=== PATIENT | female | born 2000 | race Caucasian/White ===

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

== ENCOUNTER 2019-11-02 14:44 | Emergency (ER) | payer MEDICAID ==
[2019-11-02 15:03] VITALS: BP 134/70; PULSE 85
[2019-11-02 15:31] LABS: ANION GAP 10.7; CHLORIDE,CL 102 mmol/L (101-111); SODIUM,NA 134 mmol/L (135-145)
--- NOTE | 2019-11-02 16:04 | EDM.PDOC ---
Scribed by Celia Kaufman 11/02/19 [id number] for Pj Alvarez MD ED HPI GENERAL MEDICAL PROBLEM - General Chief Complaint: Abdominal Pain Stated Complaint: NOT EATING, THROWING UP [id number] Time Seen by Provider: 11/02/19 14:56 Source of Information: Reports: Patient, RN, RN Notes Reviewed History Limitations: Reports: No Limitations - History of Present Illness INITIAL COMMENTS - FREE TEXT/NARRATIVE: Patient presents to ER with complaints of "not being able to eat for a month." She is having nausea but no vomiting. She is unsure if she is and would like blood work to determine this. She states she is unable to give urine at this time. She has not had flu vaccine. 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 She has had some chills in the past week. Onset: Gradual Duration: Constant Location: Reports: Abdomen Severity: Mild Improves with: Reports: None Worsens with: Reports: None Associated Symptoms: Reports: No Other Symptoms - Related Data Allergies Allergy/AdvReac Type Severity Reaction Status Date / Time No Known Allergies Allergy Verified 11/02/19 15:07 Home Meds: Home Meds . [No Known Home Meds] 11/02/19 [History] Past Medical History HEENT History: Reports: None Cardiovascular History: Reports: None Respiratory History: Reports: Asthma Other Respiratory History: exercise induced Gastrointestinal History: Reports: None Genitourinary History: Reports: UTI, Recurrent [employer] History: Reports: None Musculoskeletal History: Reports: None Neurological History: Reports: None Psychiatric History: Reports: Anxiety, Panic Attack Endocrine/Metabolic History: Reports: None Hematologic History: Reports: None Immunologic History: Reports: None Oncologic (Cancer) History: Reports: None Dermatologic History: Reports: None - Infectious Disease History Infectious Disease History: Reports: Chicken Pox Social & Family History - Family History Family Medical History: Noncontributory - Caffeine Use Caffeine Use: Reports: None - Living Situation & Occupation Living situation: Reports: with Family Occupation: Student ED ROS GENERAL - Review of Systems Review Of Systems: Comprehensive ROS is negative, except as noted in HPI. ED EXAM, GI/ABD - Physical Exam Exam: See Below Exam Limited By: No Limitations General Appearance: Alert, WD/WN, No Apparent Distress Eyes: Bilateral: Normal Appearance Ears: Normal External Exam, Normal Canal, Hearing Grossly Normal, Normal TMs Nose: Normal Inspection, Normal Mucosa, No Blood Throat/Mouth: Normal Inspection, Normal Lips, Normal Teeth, Normal Gums, Normal Oropharynx, Normal Voice, No Airway Compromise Head: Atraumatic, Normocephalic Neck: Normal Inspection, Supple, Non-Tender, Full Range of Motion Respiratory/Chest: No Respiratory Distress, Lungs Clear, Normal Breath Sounds, No Accessory Muscle Use, Chest Non-Tender Cardiovascular: Normal Peripheral Pulses, Regular Rate, Rhythm, No Edema, No Gallop, No JVD, No Murmur, No Rub GI/Abdominal Exam: Normal Bowel Sounds, Soft, Non-Tender, No Organomegaly, No Distention, No Abnormal Bruit, No Mass, Pelvis Stable (Female) Exam: Deferred Rectal (Female) Exam: Deferred Back Exam: Normal Inspection, Full Range of Motion, NT Extremities: Normal Inspection, Normal Range of Motion, Non-Tender, Normal Capillary Refill, No Pedal Edema Neurological: Alert, Oriented, CN II-XII Intact, Normal Cognition, Normal Gait, Normal Reflexes, No Motor/Sensory Deficits Psychiatric: Normal Affect, Normal Mood Skin Exam: Warm, Dry, Intact, Normal Color, No Rash Course - Vital Signs Last Recorded V/S: Last Vital Signs Temp 98.3 F 11/02/19 15:02 Pulse 85 11/02/19 15:02 Resp 18 11/02/19 15:02 BP 134/70 11/02/19 15:02 Pulse Ox 95 11/02/19 15:02 - Orders/Labs/Meds Orders: Active Orders 24 hr Category Date Time Status UA RFX BULMARO AND CULT IF INDIC [URIN] Stat Lab 11/02/19 15:42 Received Labs: Laboratory Tests 11/02/19 11/02/19 11/02/19 Range/Units 15:05 15:05 15:42 WBC 9.0 (5.0-10.0) 10^3/uL RBC 4.43 (4.2-5.4) 10^6/uL Hgb 14.2 (12.0-16.0) g/dL Hct 39.3 (37.0-47.0) % MCV 88.7 (80-100) fL MCH 32.1 (27.0-34.0) pg MCHC 36.1 H (33.0-35.0) g/dL Plt Count 284 (150-450) 10^3/uL Neut % (Auto) 78.2 H (42.2-75.2) % Lymph % (Auto) 12.2 L (20.5-50.1) % Sterling % (Auto) 7.3 (2-8) % Eos % (Auto) 1.7 (1.0-3.0) % Baso % (Auto) 0.6 (0.0-1.0) % Sodium 134 L (135-145) mmol/L Potassium 3.7 (3.6-5.0) mmol/L Chloride 102 (101-111) mmol/L Carbon Dioxide 25.0 (21.0-31.0) mmol/L Anion Gap 10.7 BUN 12 (7-18) mg/dL Creatinine 0.8 (0.6-1.3) mg/dL Est Cr Clr Drug Dosing 100.94 mL/min Estimated GFR (MDRD) > 60 BUN/Creatinine Ratio 15.00 Glucose 89 (74-105) mg/dL Calcium 9.3 (8.4-10.2) mg/dl Total Bilirubin 0.8 (0.2-1.0) mg/dL AST 17 (10-42) IU/L ALT 16 (10-60) IU/L Alkaline Phosphatase 67 (42-121) IU/L Total Protein 7.6 (6.7-8.2) g/dl Albumin 4.7 (3.2-5.5) g/dl Globulin 2.9 Albumin/Globulin Ratio 1.62 Amylase 54 (28-100) U/L Lipase 30 (22-51) U/L Urine HCG, Qual Positive Urine Opiates Screen (NEGATIVE) Ur Oxycodone Screen (NEGATIVE) Urine Methadone Screen (NEGATIVE) Ur Barbiturates Screen (NEGATIVE) U Tricyclic Antidepress (NEGATIVE) Ur Phencyclidine Scrn (NEGATIVE) Ur Amphetamine Screen (NEGATIVE) U Methamphetamines Scrn (NEGATIVE) Urine MDMA Screen (NEGATIVE) U Benzodiazepines Scrn (NEGATIVE) Urine Cocaine Screen (NEGATIVE) U Marijuana (THC) Screen (NEGATIVE) 11/02/19 Range/Units 15:42 WBC (5.0-10.0) 10^3/uL RBC (4.2-5.4) 10^6/uL Hgb (12.0-16.0) g/dL Hct (37.0-47.0) % MCV (80-100) fL MCH (27.0-34.0) pg MCHC (33.0-35.0) g/dL Plt Count (150-450) 10^3/uL Neut % (Auto) (42.2-75.2) % Lymph % (Auto) (20.5-50.1) % Sterling % (Auto) (2-8) % Eos % (Auto) (1.0-3.0) % Baso % (Auto) (0.0-1.0) % Sodium (135-145) mmol/L Potassium (3.6-5.0) mmol/L Chloride (101-111) mmol/L Carbon Dioxide (21.0-31.0) mmol/L Anion Gap BUN (7-18) mg/dL Creatinine (0.6-1.3) mg/dL Est Cr Clr Drug Dosing mL/min Estimated GFR (MDRD) BUN/Creatinine Ratio Glucose (74-105) mg/dL Calcium (8.4-10.2) mg/dl Total Bilirubin (0.2-1.0) mg/dL AST (10-42) IU/L ALT (10-60) IU/L Alkaline Phosphatase (42-121) IU/L Total Protein (6.7-8.2) g/dl Albumin (3.2-5.5) g/dl Globulin Albumin/Globulin Ratio Amylase (28-100) U/L Lipase (22-51) U/L Urine HCG, Qual Urine Opiates Screen Negative (NEGATIVE) Ur Oxycodone Screen Negative (NEGATIVE) Urine Methadone Screen Negative (NEGATIVE) Ur Barbiturates Screen Negative (NEGATIVE) U Tricyclic Antidepress Negative (NEGATIVE) Ur Phencyclidine Scrn Negative (NEGATIVE) Ur Amphetamine Screen Negative (NEGATIVE) U Methamphetamines Scrn Negative (NEGATIVE) Urine MDMA Screen Negative (NEGATIVE) U Benzodiazepines Scrn Negative (NEGATIVE) Urine Cocaine Screen Negative (NEGATIVE) U Marijuana (THC) Screen Positive H (NEGATIVE) Departure - Departure Time of Disposition: 16:01 Disposition: Home, Self-Care 01 Condition: Good Clinical Impression: Nausea/vomiting in Qualifiers: Weeks of gestation: unspecified Qualified Code(s): Z34.90 - Encounter for supervision of normal , unspecified, unspecified trimester - Discharge Information *PRESCRIPTION DRUG MONITORING PROGRAM REVIEWED*: Not Applicable *COPY OF PRESCRIPTION DRUG MONITORING REPORT IN PATIENT JUAN: Not Applicable Instructions: Morning Sickness, [id number], First Trimester of , [id number] Forms: ED Department Discharge Additional Instructions: Rx: Reglan 10mg Rx: Vitamin Abstain from marijuana use or exposure. Establish OB care, call this week for a clinic appointment. Sepsis Event Note - Focused Exam Vital Signs: Vital Signs Temp Pulse Resp BP Pulse Ox 11/02/19 15:02 98.3 F 85 18 134/70 95 Date Exam was Performed: 11/02/19 Time Exam was Performed: 16:00 - My Orders Last 24 Hours: My Active Orders 11/02/19 15:42 UA RFX BULMARO AND CULT IF INDIC [URIN] Stat - Assessment/Plan Last 24 Hours: My Active Orders 11/02/19 15:42 UA RFX BULMARO AND CULT IF INDIC [URIN] Stat I have read and agree with the documentation that has been completed regarding this visit. By signing this record, I attest that the documentation was completed in my physical presence and is an accurate record of the encounter.
== END 2019-11-02 16:14 | disposition home or self-care (01) ==
LOC: DL.ED 14:44
DX: O21.9 Vomiting of pregnancy, unspecified (principal); O99.511 Diseases of the respiratory system complicating pregnancy, first trimester; J45.909 Unspecified asthma, uncomplicated
CPT/HCPCS: 36415; 80053; 80305-QW; 81001; 81025; 82150; 83690; 85025; 87086; 87491; 87591; 99284

== ENCOUNTER 2022-01-03 16:18 | Emergency (ER) | payer SELFPAY ==
[2022-01-03 16:54] VITALS: BP 118/91; PULSE 63
== END 2022-01-03 17:30 | disposition left against medical advice (07) ==
LOC: DL.ED 16:18
DX: Z53.21 Procedure and treatment not carried out due to patient leaving prior to being seen by health care provider (principal)

== ENCOUNTER 2022-02-19 11:16 | Emergency (ER) | payer MEDICAID ==
[2022-02-19] MEDS ORDERED: Ondansetron 4 MG/2 ML SDV IVPUSH ONE (11:36)
[2022-02-19] MEDS ORDERED: Sodium Chloride 0.9% 1,000 ML IV ONE (11:36)
[2022-02-19] MEDS ORDERED: Ondansetron 4 MG/2 ML SDV ONE (11:37)
[2022-02-19 11:47] VITALS: BP 107/89; PULSE 78
[2022-02-19 12:19] LABS: ANION GAP 15.8 mEq/L (7-13); CHLORIDE,CL 107 mmol/L (98-107); SODIUM,NA 144 mmol/L (136-145)
[2022-02-19] MEDS ORDERED: LORazepam 2 MG/ML SDV IVPUSH ONE (12:30)
[2022-02-19] MEDS ORDERED: Metoclopramide 10 MG/2 ML SDV IVPUSH ONE (12:38)
[2022-02-19] MEDS ORDERED: metroNIDAZOLE 250 MG Tab PO ONE (12:46)
[2022-02-19 13:08] LABS: CORONAVIRUS COVID-19 NAA NEGATIVE (NEGATIVE); RESPIRATORY SYNCYTIAL VIR NAA NEGATIVE (NEGATIVE)
[2022-02-19 13:37] LABS: AMPHETAMINES,URINE NEGATIVE (NEGATIVE); BARBITURATES,URINE NEGATIVE (NEGATIVE); BENZODIAZEPINE,URINE NEGATIVE (NEGATIVE); MDMA (ECSTASY), URINE NEGATIVE (NEGATIVE); METHADONE,URINE NEGATIVE (NEGATIVE); METHAMPHETAMINES,URINE NEGATIVE (NEGATIVE); OPIATES,URINE NEGATIVE (NEGATIVE); OXYCODONE,URINE NEGATIVE (NEGATIVE); PHENCYCLIDINE,URINE NEGATIVE (NEGATIVE); TCA,URINE NEGATIVE (NEGATIVE)
== END 2022-02-19 13:43 | disposition home or self-care (01) ==
LOC: DL.ED 11:16
DX: N76.0 Acute vaginitis (principal); B96.89 Other specified bacterial agents as the cause of diseases classified elsewhere; R11.2 Nausea with vomiting, unspecified; F10.230 Alcohol dependence with withdrawal, uncomplicated; Z20.822 Contact with and (suspected) exposure to COVID-19
CPT/HCPCS: 0241U; 36415; 80053; 80305; 80307; 81001; 81025; 85025; 86140; 96361; 96374; 96375; 99284; J2060; J2405; J2765; J7030

== ENCOUNTER 2022-05-08 15:29 | Emergency (ER) | payer MEDICAID ==
[2022-05-08] MEDS ORDERED: Sodium Chloride 0.9% 10 ML Syringe FLUSH PRN (15:40)
[2022-05-08 16:01] VITALS: BP 112/72; PULSE 79
[2022-05-08 16:41] LABS: ANION GAP 11.6 mEq/L (7-13)
== END 2022-05-08 17:45 | disposition home or self-care (01) ==
LOC: DL.ED 15:29
DX: O36.80X0 Pregnancy with inconclusive fetal viability, not applicable or unspecified (principal); J45.909 Unspecified asthma, uncomplicated; Z3A.09 9 weeks gestation of pregnancy; Z79.899 Other long term (current) drug therapy
CPT/HCPCS: 36415; 76815; 80053; 81001; 84702; 85025; 99283; 99284

== ENCOUNTER 2022-08-30 20:37 | Emergency (ER) | payer MEDICAID ==
[2022-08-30] MEDS ORDERED: Ondansetron 4 MG Tab.DIS PO ONE (20:38)
[2022-08-30 21:48] VITALS: BP 103/46; PULSE 66
[2022-08-30] MEDS ORDERED: Sodium Chloride 0.9% 1,000 ML IV ONE (22:54)
[2022-08-30] MEDS ORDERED: Ondansetron 4 MG/2 ML SDV IVPUSH ONE (22:54)
[2022-08-30 23:39] LABS: ANION GAP 18.2 mEq/L (7-13); CHLORIDE,CL 100 mmol/L (98-107); ESTIMATED GFR 106 mL/min (>=60); SODIUM,NA 137 mmol/L (136-145)
[2022-08-31] MEDS ORDERED: Potassium Chloride 20 MEQ in Premix Bag 1 BAG IV ONE (00:04)
[2022-08-31] MEDS ORDERED: Sodium Chloride 0.9% 1,000 ML IV ONE (00:04)
[2022-08-31] MEDS ORDERED: Metoclopramide 10 MG/2 ML SDV IVPUSH ONE (00:21)
[2022-08-31 01:39] LABS: AMPHETAMINES,URINE NEGATIVE (NEGATIVE); BARBITURATES,URINE NEGATIVE (NEGATIVE); BENZODIAZEPINE,URINE NEGATIVE (NEGATIVE); MDMA (ECSTASY), URINE NEGATIVE (NEGATIVE); METHADONE,URINE NEGATIVE (NEGATIVE); METHAMPHETAMINES,URINE NEGATIVE (NEGATIVE); OPIATES,URINE NEGATIVE (NEGATIVE); OXYCODONE,URINE NEGATIVE (NEGATIVE); PHENCYCLIDINE,URINE NEGATIVE (NEGATIVE); TCA,URINE NEGATIVE (NEGATIVE)
[2022-08-31] MEDS ORDERED: cefTRIAXone 1 GM Vial IVPUSH ONE (02:03)
[2022-08-31 02:04] LABS: CORONAVIRUS COVID-19 NAA NEGATIVE (NEGATIVE); RESPIRATORY SYNCYTIAL VIR NAA NEGATIVE (NEGATIVE)
[2022-08-31] MEDS ORDERED: Ondansetron 4 MG Tab.DIS ONE (02:42)
== END 2022-08-31 03:07 | disposition home or self-care (01) ==
LOC: DL.ED 20:37
DX: O23.41 Unspecified infection of urinary tract in pregnancy, first trimester (principal); N39.0 Urinary tract infection, site not specified; O99.511 Diseases of the respiratory system complicating pregnancy, first trimester; J45.909 Unspecified asthma, uncomplicated; Z79.899 Other long term (current) drug therapy; Z3A.12 12 weeks gestation of pregnancy; Z20.822 Contact with and (suspected) exposure to COVID-19
CPT/HCPCS: 0241U; 36415; 80053; 80305; 81001; 82150; 83690; 83735; 84702; 85025; 87086; 96361; 96365; 96366; 96375; 99284; A9270; J0696; J2405; J2765; J3480; J7030

== ENCOUNTER 2022-09-05 17:41 | Emergency (ER) | payer MEDICAID ==
[2022-09-05] MEDS ORDERED: Promethazine 25 MG Supp RECTAL ONE (17:42)
[2022-09-05] MEDS ORDERED: Promethazine 12.5 MG Supp RECTAL ONE (17:42)
[2022-09-05] MEDS ORDERED: Sodium Chloride 0.9% 1,000 ML IV ONE (18:44)
[2022-09-05] MEDS ORDERED: Sodium Chloride 0.9% 10 ML Syringe FLUSH PRN (18:44)
[2022-09-05] MEDS ORDERED: Metoclopramide 10 MG/2 ML SDV IVPUSH ONE (18:45)
[2022-09-05] MEDS ORDERED: diphenhydrAMINE 50 MG/ML SDV IVPUSH ONE (18:46)
[2022-09-05 19:20] VITALS: BP 122/103; PULSE 103
[2022-09-05 19:22] LABS: ANION GAP 12.6 mEq/L (7-13); CHLORIDE,CL 101 mmol/L (98-107); SODIUM,NA 135 mmol/L (136-145)
[2022-09-05 19:25] LABS: ESTIMATED GFR 127 mL/min (>=60)
[2022-09-05 20:41] LABS: CORONAVIRUS COVID-19 NAA NEGATIVE (NEGATIVE); RESPIRATORY SYNCYTIAL VIR NAA NEGATIVE (NEGATIVE)
[2022-09-05] MEDS ORDERED: Promethazine 25 MG Supp ONE (22:16)
== END 2022-09-05 22:34 | disposition home or self-care (01) ==
LOC: DL.ED 17:41
DX: O21.0 Mild hyperemesis gravidarum (principal); Z3A.12 12 weeks gestation of pregnancy; Z20.822 Contact with and (suspected) exposure to COVID-19
CPT/HCPCS: 0241U; 36415; 76775; 76801; 80053; 81001; 84443; 84702; 85025; 96361; 96374; 96375; 99284-25; A9270-GY; J1200; J2765; J7030

== ENCOUNTER 2024-01-30 17:13 | Emergency (ER) | payer MEDICAID | END 2024-01-30 17:42 | disposition left against medical advice (07) | LOC: DL.ED 17:13 | DX: Z53.21 Procedure and treatment not carried out due to patient leaving prior to being seen by health care provider (principal) ==

== ENCOUNTER 2024-01-30 23:41 | Emergency (ER) | payer MEDICAID ==
[2024-01-31 00:13] LABS: BASOPHILS PERCENT AUTO 0.5 % (0.0-1.0); HEMATOCRIT 40.3 % (37.0-47.0); HEMOGLOBIN 14.3 g/dL (12.0-16.0); LYMPHOCYTES PERCENT AUTO 11.6 % (20.5-50.1); MEAN CORPUSCULAR HEMOGLOBIN 29.3 pg (27.0-34.0); MEAN CORPUSCULAR HGB CONC 35.5 g/dL (33.0-35.0); MEAN CORPUSCULAR VOLUME 82.6 fL (80-100); MONOCYTES PERCENT AUTO 8.2 % (2-8); NEUTROPHILS PERCENT AUTO 79.7 % (42.2-75.2); PLATELET COUNT,PLT 284 10^3/uL (150-450); RED BLOOD CELL COUNT 4.88 10^6/uL (4.2-5.4); WHITE BLOOD CELL COUNT,WBC 6.2 10^3/uL (5.0-10.0)
[2024-01-31] MEDS: Sodium Chloride 0.9% 1,000 ML IV ONE (00:16)
[2024-01-31] MEDS: Ondansetron 4 MG/2 ML SDV IVPUSH ONE (00:17)
[2024-01-31] MEDS: Sodium Chloride 0.9% 10 ML Syringe FLUSH PRN (00:25)
[2024-01-31 00:30] LABS: APPEARANCE,URINE SLIGHTLY CLOUDY (CLEAR); BILIRUBIN,URINE MODERATE (NEGATIVE); COLOR,URINE ORANGE (YELLOW); GLUCOSE,URINE NEGATIVE (NEGATIVE); KETONES,URINE >=160 (NEGATIVE); LEUKOCYTE ESTERASE,URINE NEGATIVE (NEGATIVE); NITRITE,URINE NEGATIVE (NEGATIVE); OCCULT BLOOD,URINE LARGE (NEGATIVE); PROTEIN,URINE 100 (NEGATIVE)
[2024-01-31 00:31] LABS: A/G RATIO 1.4; ALANINE AMINOTRANSFERASE,ALT 40 U/L (14-59); ALBUMIN 4.4 g/dL (3.4-5.0); ALKALINE PHOSPHATASE 64 U/L (46-116); AMYLASE 48 U/L (25-115); ANION GAP 19.9 mEq/L (7-13); ASPARTATE AMNIOTRANSFERASE,AST 17 U/L (15-37); BLOOD UREA NITROGEN,BUN 9 mg/dL (7-18); BUN/CREATININE RATIO 10.2 (No establ ref range); CARBON DIOXIDE,CO2 21 mmol/L (21-32); CHLORIDE,CL 98 mmol/L (98-107); CREATININE 0.88 mg/dL (0.55-1.02); EST CRCL DRUG DOSING (CG) 80.61 mL/min; GLUCOSE RANDOM 114 mg/dL (70-99); LIPASE 34 U/L (16-77); MAGNESIUM 1.8 mg/dL (1.8-2.4); POTASSIUM,K 2.9 mmol/L (3.5-5.1); PROTEIN TOTAL,TP 7.6 g/dL (6.4-8.2); SODIUM,NA 136 mmol/L (136-145)
[2024-01-31 00:32] LABS: ESTIMATED GFR 94 mL/min (>=60); ETHANOL BLOOD MEDICAL < 3 mg/dL (0)
[2024-01-31 00:34] LABS: LACTIC ACID 1.4 mmol/L (0.4-2.0)
[2024-01-31 00:35] LABS: AMPHETAMINES,URINE NEGATIVE (NEGATIVE); BARBITURATES,URINE NEGATIVE (NEGATIVE); BENZODIAZEPINE,URINE NEGATIVE (NEGATIVE); MDMA (ECSTASY), URINE NEGATIVE (NEGATIVE); METHADONE,URINE NEGATIVE (NEGATIVE); METHAMPHETAMINES,URINE NEGATIVE (NEGATIVE); OPIATES,URINE NEGATIVE (NEGATIVE); OXYCODONE,URINE NEGATIVE (NEGATIVE); PHENCYCLIDINE,URINE NEGATIVE (NEGATIVE); TCA,URINE NEGATIVE (NEGATIVE)
[2024-01-31 00:39] LABS: BACTERIA,URINE FEW /HPF (0-FEW/HPF); EPITHELIAL CELLS,URINE FEW /HPF (NOT SEEN); MUCUS,URINE RARE /LPF (NOT SEEN); RBC,URINE >100 /HPF (0-5); WBC,URINE 0-5 /HPF (0-5/HPF)
[2024-01-31] MEDS ORDERED: Potassium Chloride 20 MEQ in Premix Bag 1 BAG IV ONE ×2 (00:43→02:00)
[2024-01-31] MEDS: Potassium Chloride 20 MEQ in Premix Bag 1 BAG IV ONE ×2 (01:00→03:12)
[2024-01-31 01:25] LABS: CORONAVIRUS COVID-19 NAA NEGATIVE (NEGATIVE); INFLUENZA A NAA NEGATIVE (NEGATIVE); INFLUENZA B NAA NEGATIVE (NEGATIVE); RESPIRATORY SYNCYTIAL VIR NAA NEGATIVE (NEGATIVE)
[2024-01-31] MEDS: Scopalamine 1mg/3day Transdermal Patch TRDERM PRN (03:40)
[2024-01-31] MEDS ORDERED: Take Home: Potassium Chloride 10 MEQ Tab, 10 Tab Pack PO ONE (03:50)
[2024-01-31 05:14] VITALS: BP 136/97; PULSE 54
== END 2024-01-31 05:18 | disposition home or self-care (01) ==
LOC: DL.ED 23:41
DX: K52.9 Noninfective gastroenteritis and colitis, unspecified (principal); E87.6 Hypokalemia; J45.909 Unspecified asthma, uncomplicated; F17.210 Nicotine dependence, cigarettes, uncomplicated; Z86.16 Personal history of COVID-19; Z79.51 Long term (current) use of inhaled steroids; Z79.899 Other long term (current) drug therapy
CPT/HCPCS: 0241U; 36415; 80053; 80305-QW; 80307; 81001; 82150; 83605; 83690; 83735; 85025; 96361; 96365; 96366; 96375; 99284; 99284-25; A9270-GY; J2405; J3480; J3490; J7030

== ENCOUNTER 2024-02-01 10:01 | Emergency (ER) | payer MEDICAID ==
[2024-02-01 10:17] VITALS: BP 118/72; PULSE 69
== END 2024-02-01 10:32 | disposition home or self-care (01) ==
LOC: DL.ED 10:01
DX: R11.14 Bilious vomiting (principal); J45.909 Unspecified asthma, uncomplicated; K21.9 Gastro-esophageal reflux disease without esophagitis; Z86.16 Personal history of COVID-19; Z79.51 Long term (current) use of inhaled steroids; Z79.899 Other long term (current) drug therapy; F17.200 Nicotine dependence, unspecified, uncomplicated
CPT/HCPCS: 99283